=== PATIENT | male | born 1950 | race Caucasian/White ===

== ENCOUNTER 2020-11-08 08:19 | Day surgery (SDC) | payer MEDICARE, SELFPAY ==
[2020-11-07 15:33] VITALS: BMI 28.5
--- NOTE | 2020-11-08 08:41 | ANES.PREANE2 ---
Pre-Anesthetic Assessment Pre-Anesthetic Assessment: Height/Weight: Height 1.83 m Weight 95.254 kg Preop Diagnosis: dysphagia Proposed Procedure: Operation Date: 11/08/20 10:00 Proposed Procedures p EGD 93589(Not Applicable) - Baldev Stroud MD Familial anesthetic complications: None Was Beta Cam taken within 24 hours: N/A Was Clonidine taken within 24 hours: N/A Last intake: NPO > 8 hrs Propanolol is taken for tremors, not HTN Social: Social History: Tobacco and No alcohol Comment: chews tobacco, but not today Exam: Pre-Anes Outpt Exam: alert, oriented x 3, clear to auscultation bilaterally and regular rate & rhythm Airway: Cervical ROM: WNL MP: 1 Dentition: Other (bridge) : Comments: ? renal insufficiency -was told to just drink more water GI: GI: GERD Neuropsych: Comments: parkinson's disease Anesthetic Plan: ASA status: 3 Anesthesia: MAC Risk of > 500 ml blood loss (7ml/kg in children): No Data Anesthesia Cardiac Studies: No Data to Display
--- NOTE | 2020-11-08 08:50 | W.PM.OPSFHP ---
Same Day Surgery H&P Indication for Procedure/HPI DATE OF PROCEDURE: November 08, 2020 CHIEF COMPLAINT/INDICATIONFOR SURGICAL PROCEDURE: Esophageal dysphagia PREOP DIAGNOSIS: dysphagia PLANNED PROCEDRUE: Operation Date: 11/08/20 10:00 Proposed Procedures p EGD 41808(Not Applicable) - Baldev Stroud MD Medications/Allergies* Home Medications Medication Instructions Recorded Confirmed Type vlqletfvo-lyfelzub-cbjrkymhxy 1 tab PO DAILY 11/07/20 11/07/20 History entacapone 200 mg PO DAILY 11/07/20 11/07/20 History pantoprazole 40 mg PO DAILY 11/07/20 11/07/20 History propranolol 80 mg PO DAILY 11/07/20 11/07/20 History trazodone 50 mg PO DAILY 11/07/20 11/07/20 History Allergies/Adverse Reactions Allergy/AdvReac Type Severity Reaction Status Date / Time No Known Allergies Allergy Verified 11/07/20 15:23 Pertinent Exam Findings alert, oriented x 3, clear to auscultation bilaterally, regular rate & rhythm and procedure specific exam findings Recommendations Surgery/Procedure today Coding Level of Care Code Acute 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
[2020-11-08 09:08] VITALS: BP 134/70; PULSE 48; RESP 18; TEMP 36.6; O2SAT 97
[2020-11-08] MEDS: sodium chloride 0.9% 1,000 ML 30 ML IV (09:25)
[2020-11-08 10:13] VITALS: BP 93/63; PULSE 47; RESP 18; TEMP 36.6; O2SAT 98
[2020-11-08 10:26] VITALS: BP 110/82; PULSE 49; RESP 18; TEMP 36.6; O2SAT 98
--- NOTE | 2020-11-08 12:55 | ANE.PACU2 ---
Inpatient post-anesthesia follow up: Airway intact: Yes Vital signs: Temperature 97.9 F Pulse Rate 49 Respiratory Rate 18 Blood Pressure 110/82 Pulse Oximetry 98 Oxygen Delivery Me thod Room Air Oxygen Flow Rate Fraction of Inspir ed Oxygen Hydration adequate: Yes Nausea and vomiting: No Pain level: 1 Mental status: Baseline
[2020-11-11 05:58] LABS: H. Pylori / CLO Test Negative
== END 2020-11-08 10:50 | disposition home or self-care (01) ==
PROVIDERS: Visit Provider Internal Medicine
PROC: 0DJ08ZZ Inspection of Upper Intestinal Tract, Via Natural or Artificial Opening Endoscopic (ICD-10-PCS; CPT 43235; principal; 2020-11-08 10:00)
DX: R13.10 Dysphagia, unspecified (principal); G24.9 Dystonia, unspecified; K44.9 Diaphragmatic hernia without obstruction or gangrene; K29.70 Gastritis, unspecified, without bleeding; I10 Essential (primary) hypertension; K21.9 Gastro-esophageal reflux disease without esophagitis; G20 Parkinson's disease
CPT/HCPCS: 43239; 87077; 96360; J2704; J7030